=== PATIENT | female | born 1980 | race Caucasian/White ===

== ENCOUNTER → 2023-07-04 07:47 | Outpatient (REF) | payer BC, SELFPAY ==
--- NOTE | 2023-07-04 07:50 | CA_ITS ---
Transthoracic Echocardiogram Patient (Last, First, Middle): Yoselin Pond B Gender: Female Date of : 1980 Age: 43 Procedure Date: 07/04/2023 Procedure Type: Transthoracic Echocardiogram Location: OP Height: 154.94 cm Weight: 60.33 kg BSA: 1.59 m2 Heart Rate: bpm BP: 130 / 88 mmHg Maintenance Director: TO Referring MD: Dwayne Mast DO Symptoms: TACHYCARDIA. Study Quality: Adequate Conclusions: - Normal left ventricular size, thickness, systolic function, and wall motion. The visually estimated ejection fraction is between 55-60%. Diastolic function is normal for age. - Normal right ventricular cavity size and systolic function. Findings Left Ventricle Normal left ventricular size, thickness, systolic function, and wall motion. The visually estimated ejection fraction is between 55-60%. Diastolic function is normal for age. Right Ventricle Normal right ventricular cavity size and systolic function. Atria The left atrium is normal in size. Aortic Valve Normal aortic valve structure and function. There is no aortic valve stenosis. There is no aortic valve regurgitation. Mitral Valve The mitral valve appears normal. There is trace mitral valve regurgitation. There is no mitral valve stenosis. Pulmonic Valve The pulmonic valve is normal. There is trace pulmonic valve regurgitation. Tricuspid Valve Normal tricuspid valve structure. There is no tricuspid valve regurgitation. Tricuspid regurgitation envelope is inadequate for calculation of right ventricular systolic pressure. Normal right atrial pressure. Great Vessels All visible segments of the aorta are normal in size. The visualized portions of the pulmonary artery and branches are normal. Venous The inferior vena cava is normal in size and collapses greater than 50% with inspiration. Pericardium/Pleural There is no evidence of pericardial effusion. Prior Study Comparison No prior study available for comparison. Measurements 2D Linear Measurements IVSd: 0.83 0.6-0.9/0.6-1.0 cm LVIDd: 4.26 3.9-5.3/4.2-5.9 cm LVIDd Index: 2.68 2.4-3.2/2.2-3.1 cm/m2 LVIDs: 2.90 2.0-3.6 cm LVPWd: 0.62 0.7-1.1 cm LA Diam: 2.80 2.7-3.8/3.0-4.0 cm LAIDs Index: 1.76 1.5-2.3 cm/m2 LV Mass: 113.62 67-162/88-224 g LV Mass Index: 71.46 43-95/49-115 g/m2 LVOT Diam: 1.80 3.0+(-)1.3 cm 2D Systolic Function EF 4C: 62.00 >55% EF 2C: 63.80 >55% EF BiP: 63.50 >55% Mitral Valve MV Pk E: 0.60 MV PK A: 0.50 MV Decel Time: 215.00 E/A: 1.20 E'Lateral: 11.70 E'Medial: 7.40 E/E' Med: 8.20 E/E' Lat: 5.20 PHT: 63.00 MVA PHT: 3.49 Decel Childress: 2.80 Aortic Valve AoV Pk Terrance: 1.19 AoV Mn Terrance: 0.82 AoV VTI: 0.26 AoV Pk Grad: 6.00 Aov Mn Grad: 3.00 VASU Cont.VTI: 2.01 LVOT LVOT Pk Terrance: 0.98 LVOT Mn Terrance: 0.61 LVOT VTI: 0.21 LVOT Pk Grad: 4.00 LVOT Mn Grad: 2.00 LVOT Diam: 1.80 LVOT Area: 2.54 Diastolic Function MV Pk E: 0.60 MV Pk A: 0.50 E/A: 1.20 E'Medial: 7.40 E/E' Med: 8.20 E' Laterial: 11.70 E/E' Lat: 5.20 Right Ventricle TAPSE (mm): 20.70 TVS' Terrance: 10.10 Tricuspid Valve RA Press: 3.00 Great Vessels Aorta Sinus of Valsalva: 2.99 2.0-3.5 cm Ao Asc: 2.70 2.1-3.4 cm Updated in Other Vendor System with Status of Final Parag Medina MD electronically signed on 07/05/2023 9:52:36 PM with status of Final
== END ==
LOC: HO.CARD 07:47
PROVIDERS: PCP Hospitalist; Visit Provider Hospitalist
DX: R00.0 Tachycardia, unspecified (principal)
CPT/HCPCS: 93306

== ENCOUNTER → 2023-07-04 07:50 | Outpatient (BNV) | payer BC, SELFPAY | PROVIDERS: PCP Hospitalist; Visit Provider Internal Medicine Cardiovascular Disease | DX: I36.8 Other nonrheumatic tricuspid valve disorders (principal) | CPT/HCPCS: 93306 ==